=== PATIENT | female | born 1940 | race Caucasian/White ===

== ENCOUNTER → 2017-05-20 | Outpatient (CLI) | payer MEDICARE ==
--- NOTE | ~2017-05-20 | MY29 ---
[facility] A Service of [facility] RADIOLOGY TEXT RESULTS PATIENT: PATTIE DAVIS LOCATION: [facility] : 44 UNIT #: [id number] AGE: [address]: Duane Ibarra MD SEX: F ORDER DR: [id number] [facility] [address] [place], [place] [address] [id number] O MR#: [id number] Acc #: [id number] NAME: PATTIE DAVIS : 1940 SEX: F STUDY DATE/TIME: 05/20/2017 13:36 UNIT: [facility] ROOM: STUDY DESCRIPTION: MY SHANE SCREENING W/ CAD BILAT Attending Physician: Maliha Ibarra M.D. Referring Physician: Maliha Ibarra M.D. Ordering Physician: Maliha Ibarra M.D. Primary Care Physician: Estiven Mccain M.D. MEDICAL IMAGING REPORT This report is preliminary unless electronic signature is present EXAM Digital screening mammogram, 05/20/2017, [facility]. HISTORY 77-year-old woman with positive family history, sister. Prior bilateral breast biopsies. Annual screening. COMPARISON Comparison mammograms date to 04/29/2006, with most recent 04/16/2014. FINDINGS Digital imaging of each breast was completed, utilizing screening protocol. Additional exaggerated craniocaudal views are provided. Review includes FDA-approved CAD device. Breast parenchyma is partially fatty replaced. Minimal parenchymal opacity remains, anterior third bilaterally. Coarse calcifications in the left breast are stable. I see no interval-occurring mass. There are no suspicious microcalcifications. I see no architectural disturbance. Image-guided biopsy marker, right breast, is stable. IMPRESSION Stable benign mammogram. Annual screening recommended. Patients over the age of 40 are entered into a reminder system with target due date for the next mammogram. A result letter will also be sent to the patient. BIRADS: 2 Benign finding. Dictated by... Yeyo George M.D. [facility] A Service of [facility] RADIOLOGY TEXT RESULTS PATIENT: PATTIE DAVIS LOCATION: [facility] : 44 UNIT #: [id number] AGE: [address]: Duane Ibarra MD SEX: F ORDER DR: THIS IS AN ELECTRONICALLY VERIFIED REPORT eYyo George M.D. at 05/22/2017 1:44 PM Mary Anne TD: 05/20/2017 17:27 JOB #: [id number] MEDICAL IMAGING REPORT Page 1 of 1 COPY
== END | disposition home or self-care (01) ==
LOC: CWCC 13:06
DX: Z12.31 Encounter for screening mammogram for malignant neoplasm of breast (principal); Z80.3 Family history of malignant neoplasm of breast; Z98.890 Other specified postprocedural states
CPT/HCPCS: G0202